=== PATIENT | male | born 1965 | race Caucasian/White ===

== ENCOUNTER 2017-09-22 15:42 | Emergency (ER) | payer MEDICARE, MEDICAID ==
[~2017-09-22] VITALS: Ht 172.7 cm; Wt 72.7 kg
[~2017-09-22 15:42] MED LIST: ACET325T14 PO; AMLO5TAB2 PO; CALC0.25 PO; CALC667C PO; ERGO500017 PO; HYDR20VI3 IV; LORA-445 PO; ONDA4TAB13 PO; ONDA4VIA4 IVP; TRAM50TA2 PO
[2017-09-22] MEDS ORDERED: ONDANSETRON ODT 4 MG ONE (16:27)
[2017-09-22] MEDS ORDERED: ONDANSETRON ODT 4 MG PO ONE (16:30)
[2017-09-22 16:38] LABS: HEMATOCRIT 31.6 % (39.2-51.8); HEMOGLOBIN 10.8 g/dL (13.7-18.0); WHITE BLOOD COUNT 12.1 x10^3/uL (3.4-10)
[2017-09-22 16:45] LABS: BLOOD UREA NITROGEN 83 mg/dL (7-18)
[2017-09-22 16:51] LABS: RAPID INFLUENZA A Negative (Negative); RAPID INFLUENZA B Negative (Negative)
[2017-09-22 18:04] VITALS: BP 138/75
== END 2017-09-22 18:32 | disposition home or self-care (01) ==
LOC: ED 18:10
DX: D64.9 Anemia, unspecified (principal); I10 Essential (primary) hypertension; J45.909 Unspecified asthma, uncomplicated
CPT/HCPCS: 36415; 71020; 80048; 82040; 85025; 87400; 99285; Q0162

== ENCOUNTER 2017-12-22 11:02 | Day surgery (SDC) | payer MEDICARE, MEDICAID ==
[~2017-12-22] VITALS: Ht 172.7 cm; Wt 76.0 kg
[2017-12-22 12:12] LABS: BASOPHILS # (AUTO) 0.03 x10^3/uL (0-0.1); BASOPHILS % (AUTO) 0 % (0-1); EOSINOPHILS % (AUTO) 1 % (1-7); LYMPHOCYTES # (AUTO) 0.78 x10^3/uL (1-3.4); LYMPHOCYTES % (AUTO) 8 % (22-44); MD NO; MEAN CORPUSCULAR HEMOGLOBIN 31.6 pg (27.5-34.5); MEAN CORPUSCULAR HGB CONC 34.3 g/dL (33.2-36.2); MEAN CORPUSCULAR VOLUME 92.2 fL (81-97); MEAN PLATELET VOLUME 6.9 fL (7.4-10.4); MONOCYTES # (AUTO) 0.83 x10^3/uL (0.2-0.8); MONOCYTES % (AUTO) 9 % (2-9); NEUTROPHILS # (AUTO) 7.91 x10^3/uL (1.8-6.8); NEUTROPHILS % (AUTO) 82 % (42-75); PLATELET COUNT 414 x10^3/uL (130-400); RED BLOOD COUNT 2.72 x10^6/uL (4.38-5.82); RED CELL DISTRIBUTION WIDTH 12.7 % (9.4-14.8)
[2017-12-22 12:25] LABS: ALBUMIN 2.5 g/dL (3.4-5.0); ANION GAP 13 mmol/L (5-15); CALCIUM 9.7 mg/dL (8.5-10.1); CHLORIDE 99 mmol/L (98-107)
[2017-12-22 12:26] LABS: INTERNATIONAL NORMALIZED RATIO 0.98 (0.93-1.1); PROTHROMBIN TIME 10.1 Seconds (9.6-11.5)
[2017-12-22] MEDS ORDERED: LACT10SO28 PO (12:46)
[2017-12-22 13:18] VITALS: BP 134/81
[2017-12-22 13:46] LABS: MICROSCOPIC AUTO
[2017-12-22 13:48] LABS: CULTURE INDICATED? YES
[2017-12-22] MEDS ORDERED: HEPARIN 1,000 UNITS/ML, 10ML ONE (13:57)
[2017-12-22] MEDS ORDERED: BUPIVACAINE/PF 0.5% ONE (13:57)
[2017-12-22] MEDS ORDERED: EPINEPHRINE 1 MG/ML, 1ML ONE (13:57)
[2017-12-22] MEDS ORDERED: FENTANYL PF 250 MCG/5ML ONE (14:11)
[2017-12-22] MEDS ORDERED: FENTANYL PF 100 MCG/2ML IV PRN (14:30)
[2017-12-22] MEDS ORDERED: HYDROmorphone 1 MG/ML, 1ML IV PRN (14:30)
[2017-12-22] MEDS ORDERED: MIDAZOLAM 1 MG/ML, 2ML IV PRN (14:30)
[2017-12-22] MEDS ORDERED: OXYcodone 5 MG/5 ML ORAL.SOL UDC PO PRN (14:30)
[2017-12-22] MEDS ORDERED: ONDANSETRON 2MG/ML, 2ML IVPush PRN (14:30)
[2017-12-22] MEDS ORDERED: ALBUTEROL/IPRATROPIUM 2.5MG/0.5MG, 3 ML NPPB PRN (14:30)
[2017-12-22] MEDS ORDERED: MEPERIDINE/PF 25MG/0.5ML IVPush PRN (14:30)
[2017-12-22] MEDS ORDERED: PROMETHAZINE 25 MG/ML, 1ML IV PRN (14:30)
[2017-12-22] MEDS ORDERED: hydrALAzine 20 MG/ML, 1ML IV PRN (14:30)
[2017-12-22] MEDS ORDERED: ACETAMINOPHEN 325 MG TABLET PO PRN (14:30)
[2017-12-22] MEDS ORDERED: PROMETHAZINE 12.5 MG SUPP PR PRN (14:30)
[2017-12-22] MEDS ORDERED: DIAZEPAM 5 MG/ML, 2ML IVPush PRN (14:30)
[2017-12-22] MEDS ORDERED: LABETALOL 5MG/ML, 20ML IV PRN (14:30)
[2017-12-22] MEDS ORDERED: ROCURONIUM 10 MG/ML,10ML ONE (14:38)
[2017-12-22] MEDS ORDERED: DEXAMETHASONE 4 MG/ML, 1ML ONE (14:38)
[2017-12-22] MEDS ORDERED: PROPOFOL 10 MG/ML, 20ML ONE (14:38)
[2017-12-22] MEDS ORDERED: ONDANSETRON 2MG/ML, 2ML ONE (14:38)
[2017-12-22] MEDS ORDERED: SUCCINYLCHOLINE 20 MG/ML, 10ML ONE (14:38)
[2017-12-22] MEDS ORDERED: CEFAZOLIN 1,000 MG ONE (14:38)
[2017-12-22] MEDS ORDERED: GLYCOPYRROLATE 0.2MG/1ML, 5ML ONE (14:38)
[2017-12-22] MEDS ORDERED: NEOSTIGMINE 1 MG/ML, 10ML ONE (14:38)
[2017-12-22] MEDS ORDERED: PROMETHAZINE 25 MG/ML, 1ML ONE (14:49)
[2017-12-22] MEDS ORDERED: OXYcodone 5 MG/5 ML ORAL.SOL UDC ONE (14:57)
[2017-12-22] MEDS ORDERED: FENTANYL PF 100 MCG/2ML ONE (14:57)
== END 2017-12-23 10:00 | disposition home or self-care (01) ==
LOC: OR 17:50
PROVIDERS: ATTEND Surgery Vascular Surgery
DX: T85.611A Breakdown (mechanical) of intraperitoneal dialysis catheter, initial encounter (principal); I12.9 Hypertensive chronic kidney disease with stage 1 through stage 4 chronic kidney disease, or unspecified chronic kidney disease; J45.909 Unspecified asthma, uncomplicated; N18.4 Chronic kidney disease, stage 4 (severe); Z99.2 Dependence on renal dialysis; Y81.2 Prosthetic and other implants, materials and accessory general- and plastic-surgery devices associated with adverse incidents; R82.99 Other abnormal findings in urine
CPT/HCPCS: 36415; 49325; 74018; 80048; 81001; 82040; 85025; 85610; 85730; 87086; 96374; 96375; 99285; J0171; J0330; J0690; J1100; J2405; J2550; J2704; J2710; J3010; J3490; J1644

== ENCOUNTER 2018-02-12 19:31 | Emergency (ER) | payer MEDICARE, MEDICAID ==
[~2018-02-12] VITALS: Ht 172.7 cm; Wt 76.7 kg
[~2018-02-12 19:31] MED LIST changes: +LACT10SO28 PO
[2018-02-12 21:29] LABS: BASOPHILS # (AUTO) 0.03 x10^3/uL (0-0.1); BASOPHILS % (AUTO) 1 % (0-1); EOSINOPHILS # (AUTO) 0.34 x10^3/uL (0-0.4); EOSINOPHILS % (AUTO) 5 % (1-7); LYMPHOCYTES # (AUTO) 0.69 x10^3/uL (1-3.4); LYMPHOCYTES % (AUTO) 10 % (22-44); MD NO; MEAN CORPUSCULAR HGB CONC 34.3 g/dL (33.2-36.2); MEAN CORPUSCULAR VOLUME 90.6 fL (81-97); MEAN PLATELET VOLUME 6.7 fL (7.4-10.4); MONOCYTES % (AUTO) 8 % (2-9); NEUTROPHILS # (AUTO) 5.56 x10^3/uL (1.8-6.8); NEUTROPHILS % (AUTO) 77 % (42-75); PLATELET COUNT 419 x10^3/uL (130-400); RED BLOOD COUNT 3.14 x10^6/uL (4.38-5.82); RED CELL DISTRIBUTION WIDTH 16.2 % (9.4-14.8)
[2018-02-12 21:33] LABS: MICROSCOPIC AUTO
[2018-02-12 21:34] LABS: CULTURE INDICATED? YES
[2018-02-12 21:43] LABS: ALBUMIN 2.3 g/dL (3.4-5.0); ANION GAP 9 mmol/L (5-15); CHLORIDE 97 mmol/L (98-107)
[2018-02-12 21:46] LABS: ALANINE AMINOTRANSFERASE 18 U/L (12-78); ALKALINE PHOSPHATASE 50 U/L (45-117); BILIRUBIN,TOTAL 0.5 mg/dL (0.2-1.0); TOTAL PROTEIN 6.3 g/dL (6.4-8.2)
[2018-02-12 22:54] VITALS: BP 138/88
== END 2018-02-12 22:56 | disposition home or self-care (01) ==
LOC: ED 22:14
DX: K52.9 Noninfective gastroenteritis and colitis, unspecified (principal); I10 Essential (primary) hypertension
CPT/HCPCS: 36415; 74176; 80053; 81001; 83690; 85025; 87086; 99285

== ENCOUNTER 2018-03-19 11:25 | Inpatient (IN) | payer MEDICAID, MEDICARE ==
[~2018-03-19] VITALS: Ht 172.7 cm; Wt 76.3 kg
[2018-03-19 12:31] LABS: BASOPHILS # (AUTO) 0.03 x10^3/uL (0-0.1); BASOPHILS % (AUTO) 0 % (0-1); EOSINOPHILS # (AUTO) 0.08 x10^3/uL (0-0.4); EOSINOPHILS % (AUTO) 1 % (1-7); LYMPHOCYTES # (AUTO) 0.35 x10^3/uL (1-3.4); LYMPHOCYTES % (AUTO) 4 % (22-44); MD NO; MEAN CORPUSCULAR HEMOGLOBIN 30.8 pg (27.5-34.5); MEAN CORPUSCULAR VOLUME 90.6 fL (81-97); MEAN PLATELET VOLUME 6.5 fL (7.4-10.4); MONOCYTES # (AUTO) 0.39 x10^3/uL (0.2-0.8); MONOCYTES % (AUTO) 4 % (2-9); NEUTROPHILS # (AUTO) 8.68 x10^3/uL (1.8-6.8); NEUTROPHILS % (AUTO) 91 % (42-75); PLATELET COUNT 454 x10^3/uL (130-400); RED BLOOD COUNT 3.59 x10^6/uL (4.38-5.82); RED CELL DISTRIBUTION WIDTH 15.6 % (9.4-14.8)
[2018-03-19 12:41] LABS: ALBUMIN 2.1 g/dL (3.4-5.0); ANION GAP 10 mmol/L (5-15); CHLORIDE 99 mmol/L (98-107)
[2018-03-19] MEDS ORDERED: MORPHINE SULFATE 4 MG/ML, 1ML IVPush ONE (14:00)
[2018-03-19] MEDS ORDERED: MORPHINE SULFATE 4 MG/ML, 1ML ONE (14:23)
[2018-03-19] MEDS ORDERED: ONDANSETRON ODT 4 MG PO PRN (14:30)
[2018-03-19] MEDS ORDERED: morphine SULFATE 10 MG/ML, 1ML IVPush PRN (14:30)
[2018-03-19] MEDS ORDERED: hydrALAzine 20 MG/ML, 1ML IVPush PRN (14:30)
[2018-03-19 14:31] LABS: TROPONIN I < 0.015 ng/mL (0.000-0.045)
[2018-03-19 15:27] VITALS: BP 137/83
[2018-03-19 15:43] VITALS: BP 137/83
[2018-03-19] MEDS ORDERED: CATHFLO-ALTEPLASE 2 MG/2 ML CATHFLUSH ONE (16:00)
[2018-03-19 19:24] VITALS: BP 151/90
[2018-03-19 20:40] LABS: TROPONIN I < 0.015 ng/mL (0.000-0.045)
[2018-03-19] MEDS: CALCITRIOL 0.25 MCG CAPSULE PO SCH (21:03)
[2018-03-20 02:21] VITALS: BP 133/75
[2018-03-20 05:33] LABS: BASOPHILS # (AUTO) 0.02 x10^3/uL (0-0.1); BASOPHILS % (AUTO) 0 % (0-1); EOSINOPHILS # (AUTO) 0.09 x10^3/uL (0-0.4); EOSINOPHILS % (AUTO) 1 % (1-7); LYMPHOCYTES # (AUTO) 0.48 x10^3/uL (1-3.4); LYMPHOCYTES % (AUTO) 6 % (22-44); MD NO; MEAN CORPUSCULAR HEMOGLOBIN 31.5 pg (27.5-34.5); MEAN CORPUSCULAR HGB CONC 34.8 g/dL (33.2-36.2); MEAN CORPUSCULAR VOLUME 90.5 fL (81-97); MEAN PLATELET VOLUME 6.9 fL (7.4-10.4); MONOCYTES # (AUTO) 0.65 x10^3/uL (0.2-0.8); MONOCYTES % (AUTO) 7 % (2-9); NEUTROPHILS # (AUTO) 7.64 x10^3/uL (1.8-6.8); NEUTROPHILS % (AUTO) 86 % (42-75); PLATELET COUNT 387 x10^3/uL (130-400); RED BLOOD COUNT 2.97 x10^6/uL (4.38-5.82); RED CELL DISTRIBUTION WIDTH 15.6 % (9.4-14.8)
[2018-03-20 05:38] LABS: CHLORIDE 100 mmol/L (98-107)
[2018-03-20 05:44] LABS: ALANINE AMINOTRANSFERASE 14 U/L (12-78); ALBUMIN 1.7 g/dL (3.4-5.0); ALKALINE PHOSPHATASE 52 U/L (45-117); ANION GAP 9 mmol/L (5-15); BILIRUBIN,TOTAL 0.6 mg/dL (0.2-1.0); CALCIUM 8.8 mg/dL (8.5-10.1); TOTAL PROTEIN 5.7 g/dL (6.4-8.2)
[2018-03-20 08:05] VITALS: BP 147/80
[2018-03-20] MEDS: ACETAMINOPHEN 325 MG TABLET PO PRN (08:51)
[2018-03-20] MEDS: AMLODIPINE 5 MG TABLET PO SCH (08:52)
[2018-03-20] MEDS: CALCITRIOL 0.25 MCG CAPSULE PO SCH ×2 (09:00→21:21)
[2018-03-20] MEDS ORDERED: HEPARIN 1,000 UNITS/ML, 10ML ONE (11:42)
[2018-03-20] MEDS ORDERED: PROTAMINE SULFATE 10 MG/ML, 5ML ONE (11:42)
[2018-03-20] MEDS ORDERED: BUPIVACAINE/PF 0.5% ONE (11:42)
[2018-03-20] MEDS ORDERED: EPINEPHRINE 1 MG/ML, 1ML ONE (11:43)
[2018-03-20] MEDS ORDERED: FENTANYL PF 100 MCG/2ML ONE ×2 (11:51→13:49)
[2018-03-20] MEDS ORDERED: ROCURONIUM 10MG/ML,5ML ONE (11:51)
[2018-03-20] MEDS ORDERED: PROPOFOL 10 MG/ML, 20ML ONE (11:51)
[2018-03-20] MEDS ORDERED: CEFAZOLIN 1,000 MG ONE ×2 (11:51)
[2018-03-20] MEDS ORDERED: MORPHINE SULFATE 4 MG/ML, 1ML IVPush PRN (12:00)
[2018-03-20] MEDS ORDERED: FENTANYL PF 100 MCG/2ML IV PRN (12:00)
[2018-03-20] MEDS ORDERED: hydrALAzine 20 MG/ML, 1ML IV PRN (12:00)
[2018-03-20] MEDS ORDERED: OXYcodone 5 MG/5 ML ORAL.SOL UDC PO PRN (12:00)
[2018-03-20] MEDS ORDERED: LABETALOL 5MG/ML, 20ML IV PRN (12:00)
[2018-03-20] MEDS ORDERED: PROMETHAZINE 25 MG/ML, 1ML IV PRN (12:00)
[2018-03-20] MEDS ORDERED: HALOPERIDOL 5 MG/ML IV PRN (12:00)
[2018-03-20] MEDS ORDERED: ALBUTEROL SULFATE 2.5 MG/3 ML NPPB PRN (12:00)
[2018-03-20] MEDS ORDERED: EPHEDRINE 50 MG/ML, 1ML IVPush PRN (12:00)
[2018-03-20] MEDS ORDERED: ACETAMINOPHEN 325 MG TABLET PO PRN (12:00)
[2018-03-20] MEDS ORDERED: METOPROLOL 1 MG/ML, 5ML IV PRN (12:00)
[2018-03-20] MEDS ORDERED: LIDOCAINE 4%, 4 ML SYR/CANN TP ONE (12:14)
[2018-03-20] MEDS ORDERED: DEXAMETHASONE 4 MG/ML, 1ML ONE (12:57)
[2018-03-20] MEDS ORDERED: NEOSTIGMINE 1 MG/ML, 10ML ONE (13:49)
[2018-03-20] MEDS ORDERED: GLYCOPYRROLATE 0.4 MG/2 ML, 2ML ONE (13:49)
[2018-03-20 14:00] VITALS: BP 137/89
[2018-03-20] MEDS ORDERED: OXYcodone 5 MG/5 ML ORAL.SOL UDC ONE (14:18)
[2018-03-20] MEDS ORDERED: MORPHINE SULFATE 4 MG/ML, 1ML ONE (14:21)
[2018-03-20 19:10] VITALS: BP 138/81
[2018-03-20] MEDS: HYDROcodone/APAP 5/325 TABLET PO PRN (19:17)
[2018-03-21 02:20] VITALS: BP 128/79
[2018-03-21] MEDS: HYDROcodone/APAP 5/325 TABLET PO PRN ×2 (02:22→19:57)
[2018-03-21 04:39] LABS: BASOPHILS % (AUTO) 0 % (0-1); EOSINOPHILS % (AUTO) 0 % (1-7); LYMPHOCYTES # (AUTO) 0.32 x10^3/uL (1-3.4); LYMPHOCYTES % (AUTO) 4 % (22-44); MD NO; MEAN CORPUSCULAR HEMOGLOBIN 29.5 pg (27.5-34.5); MEAN CORPUSCULAR HGB CONC 32.5 g/dL (33.2-36.2); MEAN CORPUSCULAR VOLUME 90.7 fL (81-97); MEAN PLATELET VOLUME 6.9 fL (7.4-10.4); MONOCYTES # (AUTO) 0.44 x10^3/uL (0.2-0.8); MONOCYTES % (AUTO) 5 % (2-9); NEUTROPHILS # (AUTO) 7.59 x10^3/uL (1.8-6.8); NEUTROPHILS % (AUTO) 91 % (42-75); PLATELET COUNT 417 x10^3/uL (130-400); RED BLOOD COUNT 2.98 x10^6/uL (4.38-5.82); RED CELL DISTRIBUTION WIDTH 15.5 % (9.4-14.8)
[2018-03-21 04:50] LABS: ALBUMIN 1.7 g/dL (3.4-5.0); ANION GAP 9 mmol/L (5-15); CALCIUM 8.6 mg/dL (8.5-10.1); CHLORIDE 100 mmol/L (98-107)
[2018-03-21 04:55] LABS: ALANINE AMINOTRANSFERASE 14 U/L (12-78); ALKALINE PHOSPHATASE 56 U/L (45-117); BILIRUBIN,TOTAL 0.3 mg/dL (0.2-1.0); TOTAL PROTEIN 6.1 g/dL (6.4-8.2)
[2018-03-21 08:02] VITALS: BP 131/85
[2018-03-21] MEDS: CALCITRIOL 0.25 MCG CAPSULE PO SCH ×2 (09:31→19:57)
[2018-03-21] MEDS: AMLODIPINE 5 MG TABLET PO SCH (09:32)
[2018-03-21 11:04] LABS: TROPONIN I < 0.015 ng/mL (0.000-0.045)
[2018-03-21] MEDS: ACETAMINOPHEN 325 MG TABLET PO PRN (14:25)
[2018-03-21 15:48] VITALS: BP 128/81
[2018-03-21] MEDS ORDERED: SUCR500T PO (16:38)
[2018-03-21 16:40] LABS: TROPONIN I < 0.015 ng/mL (0.000-0.045)
[2018-03-21 20:04] VITALS: BP 110/67
[2018-03-22 02:52] VITALS: BP 134/84
[2018-03-22 04:49] LABS: BASOPHILS # (AUTO) 0.04 x10^3/uL (0-0.1); BASOPHILS % (AUTO) 0 % (0-1); EOSINOPHILS # (AUTO) 0.08 x10^3/uL (0-0.4); EOSINOPHILS % (AUTO) 1 % (1-7); LYMPHOCYTES # (AUTO) 0.67 x10^3/uL (1-3.4); LYMPHOCYTES % (AUTO) 7 % (22-44); MD NO; MEAN CORPUSCULAR HEMOGLOBIN 31.4 pg (27.5-34.5); MEAN CORPUSCULAR HGB CONC 34.1 g/dL (33.2-36.2); MEAN CORPUSCULAR VOLUME 92.1 fL (81-97); MEAN PLATELET VOLUME 6.8 fL (7.4-10.4); MONOCYTES # (AUTO) 0.72 x10^3/uL (0.2-0.8); MONOCYTES % (AUTO) 8 % (2-9); NEUTROPHILS # (AUTO) 8.02 x10^3/uL (1.8-6.8); NEUTROPHILS % (AUTO) 84 % (42-75); PLATELET COUNT 406 x10^3/uL (130-400); RED BLOOD COUNT 3.12 x10^6/uL (4.38-5.82); RED CELL DISTRIBUTION WIDTH 15.9 % (9.4-14.8)
[2018-03-22 05:01] LABS: ANION GAP 6 mmol/L (5-15); CALCIUM 9.3 mg/dL (8.5-10.1); CHLORIDE 100 mmol/L (98-107); CREATININE 9.78 mg/dL (0.7-1.3)
[2018-03-22 07:49] VITALS: BP 151/86
[2018-03-22] MEDS: CALCITRIOL 0.25 MCG CAPSULE PO SCH ×2 (09:34→21:53)
[2018-03-22] MEDS: HEPARIN 5,000 UNITS/ML, 1ML SQ SCH ×2 (09:35→21:53)
[2018-03-22] MEDS: AMLODIPINE 5 MG TABLET PO SCH (09:35)
[2018-03-22] MEDS ORDERED: POLYETHYLENE GLYCOL 17 GM PACKET PO ONE (10:00)
[2018-03-22 13:30] VITALS: BP 143/84
[2018-03-22] MEDS ORDERED: POLYETHYLENE GLYCOL 17 GM PACKET ONE (14:30)
[2018-03-22] MEDS: ACETAMINOPHEN 325 MG TABLET PO PRN (18:33)
[2018-03-22 19:49] VITALS: BP 127/77
[2018-03-23 02:27] VITALS: BP 157/88
[2018-03-23 05:14] LABS: CHLORIDE 104 mmol/L (98-107)
[2018-03-23] MEDS: ACETAMINOPHEN 325 MG TABLET PO PRN ×2 (05:19→21:52)
[2018-03-23 05:20] LABS: ANION GAP 8 mmol/L (5-15); CALCIUM 9.2 mg/dL (8.5-10.1); CREATININE 9.15 mg/dL (0.7-1.3)
[2018-03-23 07:51] VITALS: BP 134/84
[2018-03-23] MEDS ORDERED: MAGNESIUM HYDROXIDE 8%, 30ML UDC PO PRN ×2 (08:00→12:30)
[2018-03-23] MEDS: AMLODIPINE 5 MG TABLET PO SCH (08:17)
[2018-03-23] MEDS: CALCITRIOL 0.25 MCG CAPSULE PO SCH ×2 (08:17→21:39)
[2018-03-23] MEDS ORDERED: ARANESP 100 MCG/ML **ESRD SQ SCH (10:00)
[2018-03-23] MEDS: HEPARIN 5,000 UNITS/ML, 1ML SQ SCH ×2 (10:18→21:39)
[2018-03-23 19:15] VITALS: BP 157/92
[2018-03-23 20:00] VITALS: BP 147/82
[2018-03-23 20:49] VITALS: BP 143/83
[2018-03-23] MEDS ORDERED: MESALAMINE ENEMA 4 GM/60 ML ENEMA PR SCH (21:00)
[2018-03-23 21:07] VITALS: BP 143/83
[2018-03-23] MEDS: DOCUSATE 50 MG/5 ML, 10ML UDC PO SCH (21:39)
[2018-03-24 02:00] VITALS: BP 155/88
[2018-03-24 05:26] LABS: CHLORIDE 103 mmol/L (98-107)
[2018-03-24 05:27] LABS: ANION GAP 8 mmol/L (5-15); CALCIUM 9.1 mg/dL (8.5-10.1)
[2018-03-24 07:14] VITALS: BP 138/85
[2018-03-24] MEDS: HEPARIN 5,000 UNITS/ML, 1ML SQ SCH ×2 (07:40→20:19)
[2018-03-24] MEDS ORDERED: LIDOCAINE 2%, 20ML ONE (08:01)
[2018-03-24] MEDS ORDERED: FENTANYL PF 100 MCG/2ML ONE (08:06)
[2018-03-24] MEDS ORDERED: MIDAZOLAM 1 MG/ML, 5ML ONE (08:06)
[2018-03-24] MEDS: CALCITRIOL 0.25 MCG CAPSULE PO SCH ×2 (09:59→20:18)
[2018-03-24] MEDS: DOCUSATE 50 MG/5 ML, 10ML UDC PO SCH ×2 (10:00→20:18)
[2018-03-24 15:25] VITALS: BP 140/84
[2018-03-24 18:29] VITALS: BP 144/75
[2018-03-24] MEDS: AMLODIPINE 5 MG TABLET PO SCH (18:39)
[2018-03-25] MEDS: HYDROcodone/APAP 5/325 TABLET PO PRN (00:51)
[2018-03-25 01:33] VITALS: BP 145/82
[2018-03-25 05:20] LABS: ANION GAP 6 mmol/L (5-15); CALCIUM 8.8 mg/dL (8.5-10.1); CHLORIDE 100 mmol/L (98-107); CREATININE 9.17 mg/dL (0.7-1.3)
[2018-03-25 07:05] VITALS: BP 135/87
[2018-03-25 07:35] VITALS: BP 155/96
[2018-03-25] MEDS: DOCUSATE 50 MG/5 ML, 10ML UDC PO SCH (08:28)
[2018-03-25] MEDS: CALCITRIOL 0.25 MCG CAPSULE PO SCH (08:28)
[2018-03-25] MEDS: HEPARIN 5,000 UNITS/ML, 1ML SQ SCH (08:28)
[2018-03-25 12:14] VITALS: BP 161/87
[2018-03-25 17:51] VITALS: BP 139/72
[2018-03-25] MEDS: AMLODIPINE 5 MG TABLET PO SCH (18:07)
== END 2018-03-25 19:43 | disposition home or self-care (01) | DRG 981 ==
LOC: ED 13:24 → EDIP 13:31 → 4WST 15:01
PROVIDERS: ADMIT Hospitalist; ATTEND Hospitalist
PROC: B5181ZA Fluoroscopy of Superior Vena Cava using Low Osmolar Contrast, Guidance (ICD-10-PCS; 2018-03-20)
PROC: B548ZZA Ultrasonography of Superior Vena Cava, Guidance (ICD-10-PCS; 2018-03-20)
PROC: 5A1D70Z Performance of Urinary Filtration, Intermittent, Less than 6 Hours Per Day (ICD-10-PCS; 2018-03-20)
PROC: 02HV33Z Insertion of Infusion Device into Superior Vena Cava, Percutaneous Approach (ICD-10-PCS; principal; 2018-03-20 12:15)
PROC: 0WWG43Z Revision of Infusion Device in Peritoneal Cavity, Percutaneous Endoscopic Approach (ICD-10-PCS; 2018-03-20 12:15)
PROC: 5A1D70Z Performance of Urinary Filtration, Intermittent, Less than 6 Hours Per Day (ICD-10-PCS; 2018-03-21)
PROC: 5A1D70Z Performance of Urinary Filtration, Intermittent, Less than 6 Hours Per Day (ICD-10-PCS; 2018-03-24)
PROC: 0JH63XZ Insertion of Tunneled Vascular Access Device into Chest Subcutaneous Tissue and Fascia, Percutaneous Approach (ICD-10-PCS; 2018-03-24)
PROC: 05HM33Z Insertion of Infusion Device into Right Internal Jugular Vein, Percutaneous Approach (ICD-10-PCS; 2018-03-24)
PROC: B543ZZA Ultrasonography of Right Jugular Veins, Guidance (ICD-10-PCS; 2018-03-24)
PROC: 5A1D70Z Performance of Urinary Filtration, Intermittent, Less than 6 Hours Per Day (ICD-10-PCS; 2018-03-25)
DX: T85.611A Breakdown (mechanical) of intraperitoneal dialysis catheter, initial encounter (principal); N18.6 End stage renal disease; I12.0 Hypertensive chronic kidney disease with stage 5 chronic kidney disease or end stage renal disease; E44.0 Moderate protein-calorie malnutrition; E87.1 Hypo-osmolality and hyponatremia; N25.0 Renal osteodystrophy; N25.81 Secondary hyperparathyroidism of renal origin; J98.11 Atelectasis; D63.1 Anemia in chronic kidney disease; E55.9 Vitamin D deficiency, unspecified; E87.6 Hypokalemia; Y81.2 Prosthetic and other implants, materials and accessory general- and plastic-surgery devices associated with adverse incidents; K59.00 Constipation, unspecified; Z99.2 Dependence on renal dialysis; M54.9 Dorsalgia, unspecified; G89.29 Other chronic pain; H54.61 Unqualified visual loss, right eye, normal vision left eye; K66.0 Peritoneal adhesions (postprocedural) (postinfection); J45.909 Unspecified asthma, uncomplicated; Z79.899 Other long term (current) drug therapy; Z79.1 Long term (current) use of non-steroidal anti-inflammatories (NSAID); Z79.2 Long term (current) use of antibiotics; Z80.1 Family history of malignant neoplasm of trachea, bronchus and lung; Z88.8 Allergy status to other drugs, medicaments and biological substances; Z68.25 Body mass index [BMI] 25.0-25.9, adult
CPT/HCPCS: 36415; 36565; 49465; 71045; 74018; 76000; 76937; 77001; 80048; 80053; 82040; 84100; 84484; 85025; 86705; 86706; 87340; 93005; 96374; 99156; 99157; C1894; J0171; J0690; J0882; J1100; J1644; J2250; J2704; J2710; J2720; J2997; J3010; J3490; C1750; C1751; C1769; J1642

== ENCOUNTER → 2020-11-20 | Outpatient (CLI) | payer MEDICARE, OTHER ==
[~2020-11-20] MED LIST changes: +ACET250T2 PO; +AMLO-150 PO; +AMLO-211 PO; -AMLO5TAB2 PO; +CINA30TA2 PO; -ONDA4VIA4 IVP; +ONDA4VIA60 IVP; +SUCR500T PO
[2020-11-20 11:45] LABS: BASOPHILS % (AUTO) 1 % (0-1); EOSINOPHILS % (AUTO) 1 % (1-7); LYMPHOCYTES % (AUTO) 19 % (22-44); MEAN CORPUSCULAR HEMOGLOBIN 31.8 pg (27.5-34.5); MEAN CORPUSCULAR HGB CONC 34.3 g/dL (33.2-36.2); MONOCYTES % (AUTO) 9 % (2-9); NEUTROPHILS % (AUTO) 69 % (42-75); PLATELET COUNT 282 x10^3/uL (130-400); RED BLOOD COUNT 3.56 x10^6/uL (4.38-5.82)
[2020-11-20 11:50] LABS: ALANINE AMINOTRANSFERASE 25 U/L (12-78); ALBUMIN 3.8 g/dL (3.4-5.0); ANION GAP 7 mmol/L (5-15); CALCIUM 8.7 mg/dL (8.5-10.1); CHLORIDE 99 mmol/L (98-107)
[2020-11-20 11:53] LABS: ALKALINE PHOSPHATASE 112 U/L (45-117); BILIRUBIN,TOTAL 0.4 mg/dL (0.2-1.0); TOTAL PROTEIN 7.6 g/dL (6.4-8.2)
[2020-11-20 11:54] LABS: INTERNATIONAL NORMALIZED RATIO 0.99 (0.93-1.1); PROTHROMBIN TIME 10.6 Seconds (9.6-11.5)
[2020-11-20 11:56] LABS: MD NO
== END | disposition home or self-care (01) ==
LOC: STAR 10:02
PROVIDERS: ATTEND Surgery
DX: Z01.812 Encounter for preprocedural laboratory examination (principal); Z20.822 Contact with and (suspected) exposure to COVID-19
CPT/HCPCS: 80053; 85025; 85610; 85730; 87635; 93005

== ENCOUNTER 2021-04-07 19:15 | Emergency (ER) | payer MEDICARE ==
[~2021-04-07] VITALS: Ht 172.7 cm; Wt 50.0 kg
[~2021-04-07 19:15] MED LIST changes: +ACET325T26 PO; +COMBIGAN EACHEYE; +DARB100V SQ; +DIAZ5TAB4 PO; +ESOM40VI IVPush; +LUMIGAN 0.01% RIGHTEYE; +METO25TA35 PO; +MICA100V3 IVPB; +OXYC5TAB98 PO; +PIPE2.255 IVPB; +SIME125T PO; +TRAZ50TA66 PO; +VANC1VIA36 PO
[2021-04-07 19:20] VITALS: BP 121/74
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
== END 2021-04-07 21:42 | disposition home or self-care (01) ==
LOC: ED 20:31
DX: S16.1XXA Strain of muscle, fascia and tendon at neck level, initial encounter (principal); R10.32 Left lower quadrant pain; M25.512 Pain in left shoulder; I10 Essential (primary) hypertension; J45.909 Unspecified asthma, uncomplicated; V49.49XA Driver injured in collision with other motor vehicles in traffic accident, initial encounter; Y93.89 Activity, other specified; Y92.410 Unspecified street and highway as the place of occurrence of the external cause; Y99.8 Other external cause status
CPT/HCPCS: 72125; 74021; 99284